=== PATIENT | female | born 1985 | race Caucasian/White ===

== ENCOUNTER 2017-12-23 00:06 | Emergency (ER) | payer SELFPAY ==
--- NOTE | 2017-12-23 00:21 | Emergency Department Record ---
History of Present Illness - General Chief complaint: Edema Stated complaint: ALL OVER SWELLING Time Seen by Provider: 12/23/17 00:10 Source: Patient Mode of Arrival: Ambulatory Limitations: No limitations - History of Present Illness Initial comments: 32 yo female presents to ED for evaluation of worsening lower extremity edema for the past 3-4 days. Patient reports a history of similar symptoms previously , does take "a water pill for her symptoms". Patient reports that her symptoms are bilateral. Patient reports doubling up on her water pill today that did not make a difference. Patient denies a history of CHF, has not contacted her PCP regarding her symptoms. MD Complaint: Extremity swelling Onset/Timin -: Days(s) Location: Bilateral, Lower Leg History of Same: Yes Consistency: Constant Improves with: Nothing Worsens with: Nothing Associated Symptoms: Denies other symptoms - Related Data Home Medications Medication Instructions Recorded Confirmed Last Taken Furosemide [Lasix] 20 mg PO BID 12/23/17 12/23/17 Unknown Labetalol HCl 100 mg PO BID 12/23/17 12/23/17 Unknown Lisinopril/Hydrochlorothiazide 1 each PO DAILY 12/23/17 12/23/17 Unknown [Lisinopril-Hctz 20-12.5 mg Tab] Allergies Allergy/AdvReac Type Severity Reaction Status Date / Time erythromycin base Allergy VOMITING Verified 12/23/17 00:12 NSAIDS (Non-Steroidal AdvReac "interacts Verified 12/23/17 00:12 Anti-Inflamma with some of my medications that I am on." Review of Systems Constitutional: Denies: Chills, Fever, Malaise, Night sweats Eyes: Denies: Eye discharge, Eye pain ENT: Denies: Congestion, Ear pain, Epistaxis Respiratory: Denies: Cough, Dyspnea Cardiovascular: Reports: Edema. Denies: Chest pain, Dyspnea on exertion Endocrine: Denies: Fatigue, Heat or cold intolerance Gastrointestinal: Denies: Abdominal pain, Nausea, Vomiting Genitourinary: Denies: Incontinence, Retention Musculoskeletal: Denies: Arthralgia, Back pain Skin: Denies: Bruising, Change in color Neurological: Denies: Abnormal gait, Confusion, Headache Psychiatric: Denies: Anxiety Hematological/Lymphatic: Denies: Anemia, Blood Clots Physical Exam - General General Appearance: Alert, Oriented x3, Cooperative, No acute distress, Other ( Resting calmly on her mobile phone) Limitations: No limitations - Head Head exam: Atraumatic, Normocephalic, Normal inspection Head exam detail: negative: Abrasion, Contusion, Harper's sign, General tenderness, Hematoma, Laceration - Eye Eye exam: Normal appearance. negative: Conjunctival injection, Periorbital swelling, Periorbital tenderness, Scleral icterus - ENT Ear exam: negative: Auricular hematoma, Auricular trauma Nasal Exam: negative: Active bleeding, Discharge, Dried blood Mouth exam: negative: Drooling, Laceration, Tongue elevation - Neck Neck exam: Normal inspection. negative: Meningismus, Tenderness - Respiratory Respiratory exam: Normal lung sounds bilaterally. negative: Respiratory distress, Rhonchi, Stridor, Wheezes - Cardiovascular Cardiovascular Exam: Regular rate, Normal rhythm, Normal heart sounds - GI/Abdominal GI/Abdominal exam: Soft. negative: Rebound, Rigid, Tenderness - Rectal Rectal exam: Deferred - exam: Deferred - Extremities Extremities exam: Normal inspection, Pedal edema (2+ edema bilaterally). negative: Calf tenderness, Tenderness - Back Back exam: Denies: CVA tenderness (R), CVA tenderness (L) - Neurological Neurological exam: Alert, Normal gait, Oriented X3 - Psychiatric Psychiatric exam: Normal affect, Normal mood - Skin Skin exam: Normal color. negative: Abrasion Type of lesion: negative: abrasion Course - Reevaluation(s) Reevaluation #1: 12/23/17 01:03 Labs reviewed and are grossly unremarkable for an acute process. Symptoms appear c/w peripheral edema. Recommend compression stalking for the patient's lower extremity edema and instructions for close follow-up with her PCP. Patient verbalizes understanding of all instructions. Medical Decision Making - Lab Data Result diagrams: 12/23/17 00:25 12/23/17 00:25 Disposition Disposition: Discharge Clinical Impression: Peripheral edema Disposition: Home, Self-Care Condition: (2) Stable Instructions: Leg Edema (ED) Additional Instructions: Return to ED if your symptoms worsen or if you have any concerns. Compression stalkings as directed. Follow-up with Dr. Howard in 1-3 days as directed. Forms: Patient Portal Access Time of Disposition: 00:20 Quality - Quality Measures Quality Measures: N/A - Blood Pressure Screening Does Patient Have Any of the Following: Active Dx of HTN Blood Pressure Classification: Pre-Hypertensive BP Reading Systolic Measurement: 156 Diastolic Measurement: 85 Screening for High Blood Pressure: Patient Exclusion, Hx of HTN [[id number]]
[2017-12-23 00:40] LABS: BASO % 0.3 % (0-6); EOS % 1.6 % (0-6); GRAN % 56.5 % (47-80); HEMATOCRIT 38.3 % (35.0-47.0); LYMPH % 33.8 % (16-45); MEAN CELL VOLUME 87.8 fl (81-97); MEAN CORPUSCULAR HEMOGLOBIN 27.5 pg (27-33); MEAN CORPUSCULAR HGB CONC 31.3 g/dl (32-36); MEAN PLATELET VOLUME 10.6 fl (7.4-10.4); MONO % 7.8 % (0-9); PLATELET COUNT 315 K/uL (130-400); RED BLOOD COUNT 4.36 M/uL (3.80-5.40); RED CELL DISTRIBUTION WIDTH 15.5 % (11.5-14.5); WHITE BLOOD COUNT W/O DIFF 9.7 K/uL (4.2-12.2)
[2017-12-23 00:52] LABS: BLOOD UREA NITROGEN 18 mg/dL (6-20); CREATININE 0.9 mg/dL (0.5-0.9); EST GLOMERULAR FILTRATION RATE > 60 mL/min
[2017-12-23 00:53] LABS: TOTAL PROTEIN 7.1 g/dL (6.6-8.7)
[2017-12-23 00:55] LABS: GLUCOSE,RANDOM 146 mg/dL (74-109)
[2017-12-23 00:57] LABS: ALB/GLOB RATIO 1.2 (1.1-1.8); ALBUMIN 3.9 g/dL (4.0-5.0); ALT/SGPT 14 U/L (<33); AST/SGOT 13 U/L (10.0-35.0)
[2017-12-23 00:58] LABS: ALKALINE PHOSPHATASE 70 U/L (35-104)
[2017-12-23 01:01] LABS: NTpro B-NATRIURETIC PEPTIDE < 5.00 pg/mL (<125)
== END 2017-12-23 01:09 | disposition home or self-care (01) ==
LOC: ER 00:06
DX: R60.0 Localized edema (principal); I50.9 Heart failure, unspecified; Z87.891 Personal history of nicotine dependence
CPT/HCPCS: 80053; 83880; 85025; 99283